=== PATIENT | female | born 1980 | race Caucasian/White ===

== ENCOUNTER → 2018-03-08 17:29 | Outpatient (CLI) | payer OTHER, SELFPAY | PROVIDERS: Visit Provider Podiatrist | DX: L03.031 Cellulitis of right toe (principal); L60.0 Ingrowing nail | CPT/HCPCS: 87070; 87077; 87186; 87205 ==

== ENCOUNTER → 2018-09-02 14:18 | Outpatient (CLI) | payer OTHER, SELFPAY ==
[2018-09-02 11:09] VITALS: BMI 32.7
[2018-09-02 14:21] LABS: Mucous, Urine 0 SEEN /hpf (<or=2+); Red Blood Cells-Urine 0 SEEN /hpf (0-5)
[2018-09-02 14:31] LABS: Color, Urine Yellow (Yellow); Glucose, Dipstick Normal (Normal); Ketone-Dipstick Negative (Negative); Leukocyte Esterase-Dipstick 100 /ul (Negative); Nitrite-Dipstick Negative (Negative); Occult Blood-Urine 10 /ul (Negative); Protein-Dipstick Negative (Negative); Specific Gravity, Urine 1.015 (1.002-1.030); Urine Bilirubin Dipstick Negative (Negative); Urine Clarity Clear (Clear); Urine Urobilinogen Normal (Normal); Urine pH 6.5 (5.0 - 8.0)
[2018-09-02 14:49] LABS: Squamous Epithelial Cells - UA 5-10 SEEN /hpf (5-10); White Blood Cells 10-25 SEEN /hpf (0-5)
[2018-09-02 14:50] LABS: Bacteria 2+ /hpf (None Seen)
== END ==
PROVIDERS: Referring Provider Nurse Practitioner Family; Visit Provider Nurse Practitioner Family
DX: R30.0 Dysuria (principal)
CPT/HCPCS: 81001; 87086; 87088; 87186

== ENCOUNTER → 2022-10-03 | Outpatient (CLI) | payer OTHER, BC, SELFPAY ==
[2022-10-03 10:17] LABS: Mucous, Urine 0 SEEN /hpf (<or=2+); Red Blood Cells-Urine 0 SEEN /hpf (0-5); Squamous Epithelial Cells - UA 0 SEEN /hpf (5-10); White Blood Cells 0 SEEN /hpf (0-5)
[2022-10-03 10:34] LABS: Color, Urine Yellow (Yellow); Glucose, Dipstick Normal (Normal); Ketone-Dipstick Negative (Negative); Leukocyte Esterase-Dipstick Negative /ul (Negative); Nitrite-Dipstick Negative (Negative); Occult Blood-Urine Negative /ul (Negative); Protein-Dipstick Negative (Negative); Specific Gravity, Urine 1.025 (1.002-1.030); Urine Bilirubin Dipstick Negative (Negative); Urine Clarity Cloudy (Clear); Urine Urobilinogen Normal (Normal)
[2022-10-03 10:48] LABS: Amorphous Sediment 2+; Bacteria 1+ /hpf (None Seen); Calcium Oxalate Crystals Ur 1+ /hpf (<or=2+)
== END | disposition home or self-care (01) ==
LOC: LABSPEC 10:05
PROVIDERS: Referring Provider Nurse Practitioner Family; Visit Provider Nurse Practitioner Family
DX: R35.0 Frequency of micturition (principal)
CPT/HCPCS: 81001; 87077; 87086; 87088; 87186

== ENCOUNTER → 2023-11-01 | Outpatient (CLI) | payer OTHER, BC, SELFPAY ==
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
== END | disposition home or self-care (01) ==
LOC: LABSPEC 10:20
PROVIDERS: Referring Provider Physician Assistant; Visit Provider Physician Assistant
DX: N39.0 Urinary tract infection, site not specified (principal)
CPT/HCPCS: 87086

== ENCOUNTER → 2023-11-24 | Outpatient (CLI) | payer OTHER, BC, SELFPAY ==
--- NOTE | 2023-11-24 11:51 | US_ITS ---
STUDY: RENAL ULTRASOUND - COMPLETE REASON FOR EXAM: Female, 42 years old. UTI TECHNIQUE: Ultrasound evaluation of the kidneys was performed with real-time and static cr-scale imaging. COMPARISON: None. FINDINGS: RIGHT KIDNEY: Normal location of the right kidney, which is normal in size. The right kidney measures 10.9 cm x 5.8 cm x 4.7 cm. There is a normal cortex of the right kidney. The renal cortex measures 1.5 cm. There is no right renal mass or cyst. There are no right renal calculi. There is no right hydronephrosis. DISTAL RIGHT URETER: There is non-visualization of the distal right ureter. There is no demonstrated right ureterovesical junction calculus. There is a visualized right ureteral jet. LEFT KIDNEY: Normal location of the left kidney, which is normal in size. The left kidney measures 10.7 cm x 5.2 cm x 6.1 cm. There is a normal cortex of the left kidney. The renal cortex measures 1.6 cm. There is no left renal mass or cyst. There are no left renal calculi. There is no left hydronephrosis. DISTAL LEFT URETER: There is non-visualization of the distal left ureter. There is no demonstrated left ureterovesical junction calculus. There is a visualized left ureteral jet. BLADDER: The distended urinary bladder has a volume of 250 ml. There is a normal wall thickness of the distended urinary bladder. There is no demonstrated mass within the urinary bladder. There are no demonstrated bladder calculi. Incidental note is made of a 2.9 cm by 2.9 cm x 2.6 cm uterine fibroid. US/Kidney and Bladder IMPRESSION: Normal ultrasound of the kidneys and urinary bladder. Incidental finding is made of a 2.9 cm x 2.9 cm x 2.6 cm uterine fibroid. Electronically Signed: Rony Reyes MD at 14:50 EST ,
--- OUTSIDE RECORDS SUMMARY | 2023-11-24 12:12 | XMS RPT_ITS | CCD ---
Author Name Unknown Address [address] [place] [address] Organization [facility] Care Team Providers Care Refrigerating Oiler Name Role Phone Olga Dupree MD Primary Care Provider ANTONIETA SILVESTRE Referring Unavailable OLGA DUPREE Primary Care Unavailable OLGA DUPREE Primary Care Unavailable ANTONIETA SILVESTRE Attending Unavailable Allergies Allergy Classification Reported Allergen(s) Allergy Type Date of Onset Reaction(s) Facility (3 sources) Penicillins; Translations: [PENICILLINS] Propensity to adverse reactions 06-02-2007 [facility] Medications Current Medications Medication Drug Class(es) Dates [...] celaya MD Work Phone: Internal Medicine [facility] [place] Start: 09-13-2023 Encounter for genera l adult medical examination without abnormal findings ANTONIETA SILVESTRE [facility] Start: 09-13-2023 End: 09-14-2023 ambulatory ANTONIETA SILVESTRE Facility:[facility] Start: 08-31-2023 Telephone encounter Olga olvera MD Work Phone: Internal Medicine [place] Plan of Treatment Date Care Activity Detail Author Start: 09-13-2024 Covid-19 Vaccine (#1) Covid-19 Vacci ne (#1) [facility] Immunizations Immunization Date Immunization Notes Care Provider Ciara brian 01-21-1995 measles, mumps and rubella virus vaccine Olga Dupree MD Work Phone: [facility] Work Phone: Payers Date Payer Category Payer Unknown MMO MMO [employer] PPO [id number] 2019-Present [phone] [address] [place] [address] PPO [id number] 2019 Unknown [id number] Private Health Insurance [id number] Private Health Insurance [id number] Social History Date Type Detail Facility Start: 01-08-2018 End: 09-13-2023 Tobacco smoking status NHIS Ex-smoker [facility] End: 10-26-2006 History of tobacco use Current smoker [facility] End: 10-26-2006 History of tobacco use Cigarette Smoker [facility] Start: 01-08-2018 End: 09-13-2023 Tobacco use and exposure Smokeless tobacco non-user [facility] Start: 05-11-2022 End: 09-13-2023 Alcohol intake Current non-drinker of alcohol (finding) [facility] Start: 05-11-2022 End: 09-13-2023 [facility] Start: 05-11-2022 End: 09-13-2023 Tobacco use panel [facility] Adult Depression Scr eening Assessment 0 [facility] Start: 1980 Sex Assigned At Not on file C [facility] Clinical Note 09-27-2023 Note Date & Type Note Facility 09-27-2023 Note Patient Outreach (IN TMMN) BRITTANEY YUAN ([id number]) 1980 F Date Time Provider Department 09/27/23 OLGA DUPREE During your visit today, we recorded the following information about you: Allergies As of Date: 09/27/2023 Noted Allergy Reaction PENICILLINS 06/02/2007 Comments: CHILDHOOD REACTION Date Reviewed: 09/13/2023 Reviewed by: Antonieta Silvestre APRN.WIRELESS MANAGER - Fully Assessed Visit Diagnosis:Encounter for screening mammogram for breast cancer [Z12.31] Order(s):TOR SCREENING [[id number]] Order #: [id number] FUTURE Prescriptions as of 10/02/2023 - sulfamethoxazole-trimethoprim [...] BMI 35-39.9 [E66.9] 09/13/2023 Encounter Status:Closed by [employer] on 10/02/23 [facility] Progress note 09-13-2023 Note Date & Type Note Facility 09-13-2023 Note HNO ID: [id number] Author: Antonieta Silvestre APRN.WIRELESS MANAGER Service: ? Author Type: Nurse Practitioner Type: [...] home environment: Yes Tobacco: no ETOH: rare [employer]IC[employer] History: LMP: Patient's last menstrual period was [...] diet of 1000 mg/day for under 50, 9490-3915 mg/day for 50+ - Depression screening tool [...] COMP METABOLIC PANE (more content not included)... [facility] Note 09-01-2023 Telephone Encounter - Diya Garvin [...] appt. Please advise documented in this encounter [facility] History of Past illness Narrative 03-24-2011 Note Date & Type Note Facility documented as of this encounter (statuses as of 10/02/2023) [facility] Evaluation note Note Date & Type Note Facility documented in this encounter [facility] Reason for referral (narrative) Diagnostic Procedure Only (Routine) - Pending Review Note Date & Type Note Facility Referral ID Status Reason Start Date Expiration Date Visits Requested Visits Authorized [id number] Pending Review Auto-Generat ed Referral 09/27/2023 10/26/2024 1 1 [facility] Summary Purpose Family History No Family History [...] or prosecute any alcohol or drug abuse patient.[facility] the event this information is protected by the Federal Confidentiality of Alcohol and Drug Abuse Patient Records regulations: The Federal rules restrict any use of the information to criminally investigate or prosecute any alcohol or drug abuse patient.[facility] Reason for Visit (unrecogniz ed section and content) Care Teams (unrecognized sec tion and content) Refrigerating Oiler Relationship Specialty Start Date End Date Olga Dupree MD [address] [place] [address] PCP - General Internal Medicine 03/18/16 INFORMATION [...] BE BASED ON THE PRIMARY CLINICAL RECORDS. [facility]. provides no warranty or guarantee of the accuracy or completeness of information in this document.
== END | disposition home or self-care (01) ==
LOC: US 11:51
PROVIDERS: PCP Internal Medicine; Referring Provider Urology; Visit Provider Urology
DX: N39.0 Urinary tract infection, site not specified (principal)
CPT/HCPCS: 76770

== ENCOUNTER 2025-03-11 05:35 | Emergency (ER) | payer OTHER, SELFPAY ==
[2025-03-11 05:37] VITALS: BP 176/78; PULSE 78; RESP 18; TEMP 36.7; O2SAT 98; BMI 36.5
[2025-03-11 05:47] VITALS: BP 144/73; PULSE 74; RESP 18; O2SAT 98
--- NOTE | 2025-03-11 06:05 | EKG12_ITS ---
Test Reason : CP Blood Pressure : */* mmHG Vent. Rate : 83 BPM Atrial Rate : 83 BPM P-R Int : 172 ms QRS Dur : 92 ms QT Int : 376 ms P-R-T Axes : 50 20 32 degrees QTcB Int : 441 ms Normal sinus rhythm Normal ECG Confirmed by WENDY CARDOZA, CLAY ([id number]), primer expeditor and drier CAREY HERNANDEZ ([id number]) on 03/12/2025 8:22:31 AM Referred By: Confirmed By: CLAY NGUYEN MD
--- NOTE | 2025-03-11 06:15 | RAD_ITS ---
PROCEDURE: CHEST PA AND LATERAL 03/11/2025 REASON FOR EXAM: CHEST PAIN TECHNIQUE: CHEST PA AND LATERAL COMPARISON: None. FINDINGS: The lungs are expanded. There is no demonstrated parenchymal abnormality. There is no demonstrated pleural abnormality. Normal heart and pericardium. Normal mediastinum and tyrese. Normal visualized pulmonary arteries. Normal visualized aortic arch and descending thoracic aorta. Normal visualized thoracic spine. Normal visualized ribs, clavicles, and shoulders. There is no demonstrated abnormality of the visualized soft tissue structures of the upper abdomen. RAD/Chest PA and Lateral IMPRESSION: No evidence for acute abnormality. [facility]
[2025-03-11 06:22] LABS: Absolute Lymphocyte Count 2.72 X10^3/uL (0.83-4.51); Absolute Neutrophil Count 4.7 X10^3/uL (2.0-7.7); Basophil# 0.07 X10^3/uL; Basophil% 0.8 % (0-1); Eosinophil# 0.21 X10^3/uL; Eosinophils% 2.5 % (0-5); Hematocrit 29.2 % (37-47); Hemoglobin 8.8 g/dL (12.0-15.0); Lymphocyte # 2.72 X10^3/ul (0.83-4.51); Lymphocyte % 32.2 % (19-41); Mean Corp Hgb Conc 30.1 g/dL (32-36); Mean Corpuscular Hgb 20.6 pg (27.0-32.0); Mean Corpuscular Volume 68.4 fL (81-99); Mean Platelet Vol. 10.3 fl (6.2-12.0); Monocyte# 0.69 X10^3/uL; Monocyte% 8.2 % (0-10); NRBC Flagged by Analyzer 0 % (0-5); Neutrophil # 4.68 X10^3/uL (2.7-7.7); Neutrophil % 55.4 % (47-70); Platelet Count 415 K/mm3 (150-450); RBC Distribution Width CV 17.1 % (11.6-14.6); RBC Distribution Width SD 41.4 fl (35.1-43.9); Red Blood Count 4.27 M/mm3 (4.2-5.4); White Blood Count 8.5 K/mm3 (4.4-11.0)
[2025-03-11 06:42] LABS: Anion Gap 12 (5-15); BUN 17 mg/dL (4-19); BUN/Creat Ratio 20.3 RATIO (10-20); Calcium,Total 8.8 mg/dL (7.6-11.0); Carbon Dioxide 20.7 mmol/L (21.0-32.0); Chloride 104 mmol/L (98-108); Creatinine, Serum 0.84 mg/dL (0.70-1.20); EST Glomerular Filtration Rate 89 (>60); Estimated Creatinine Clearance 87.78 ml/min (50-250); Glucose 105 mg/dL (70-99); Magnesium 1.9 mg/dL (1.5-2.2); Potassium 3.9 mmol/L (3.3-5.1); Sodium Level 137 mmol/L (133-145); Troponin T High Sensitivity 8 ng/L (<=14)
[2025-03-11 06:44] LABS: D-Dimer Quantitative (DVT/PE) 0.27 FEU/ug/m (0.27-0.49)
--- OUTSIDE RECORDS SUMMARY | 2025-03-11 06:52 | XMS RPT_ITS | CCD ---
Author Organization [facility] Care Team Providers Care Installer Helper Name Role Phone Roof COMMERCIAL PAINTER, COMMERCIAL PAINTER-C Vamshi Navarrete Attending Provider Kaylee Gonzales MD Primary Care Provider AMBER Barnes Attending Provider Keo Quach Attending Unavailable Keo Quach Referring Unavailable Keo Quach Attending Unavailable Kaylee Gonzales Primary Care Unavailable Augusta Buitrago Referring Unavailable Augusta Buitrago Attending Unavailable Kaylee Gonzales MD Primary Care Provider Duff CASING BUILDER.GLASS BEVELER, Keturah Unavailable Aramis CASING BUILDER.MEDICAL CODING MANAGER, Antonieta Unavailable [phone] ANTONIETA SELF Referring Unavailable KAYLEE GONZALES Primary Care Unavailable ANTONIETA SELF Attending Unavailable KAYLEE GONZALES Primary Care Unavailable Allergies Allergy Classification Reported Allergen(s) Allergy Type Date of Onset Reaction(s) Facility (4 sources) Penicillins; Translations: [PENICILLINS] Allergy to substance 7 Other [facility] (4 sources) Penicillins Propensity to adverse reactions 7 [facility] (1 source) Penicillins Drug allergy (disorder) 4 [facility] Repository Medications Current Medications Medication Drug Class(es) Dates Sig (Normalized) Sig (Original) ciprofloxacin 500 mg oral tablet (4 sources) Quinolone Antimicrobial Start: 11-01-2023 End: 11-01-2023 take 500 mg by mouth twice daily Ciprofloxacin Hcl Active 500 MG PO TWICE A DAY November 01, 2023 12:00am sulfamethoxazole 800 mg / trimethoprim 160 mg oral tablet (4 sources) Dihydrofolate Reductase Inhibitor Antibacterial, Sulfonamide Antimicrobial Start: 09-27-2023 End: 10-04-2023 take 1 tablet by mouth twice daily sulfamethoxazole-t rimethoprim (BACTRIM DS) 800-160 mg per tablet Take 1 tablet by mouth two times a day for 7 days. 14 tablet 0 09/27/2023 10/04/2023 Active Start: 10-05-2022 End: 10-08-2022 take 1 tablet by mouth twice daily Sulfamethoxazole-Trimethoprim (Bactrim D s) 800-160 mg tablet Discontinued 1 TABLET PO TWICE A DAY 6 October 05, 2022 12:00am October 08, 2022 12:13am Comment on above: Take 1 tablet by tara two times a day for 7 days. Completed/Discontinued Medications Medication Drug Class(es) Dates Sig (Normalized) Sig (Original) azithromycin 250 mg oral tablet (3 sources) Macrolide Antimicrobial Start: 9 End: 9 Azithromycin Discontinued 0 PO .COMPLEX October 09, 2018 12:00am July 06, 2019 7:57am take 500 mg today (day 1), then 250 mg for 4 days (days 2-5) PO benzonatate 100 mg oral capsule (3 sources) Non-narcotic Antitussive Start: 9 End: 9 take 200 mg by mouth three times daily Benzonatate Discontinued 200 MG PO THREE TIMES A DAY October 09, 2018 12:00am July 06, 2019 7:57am methylPREDNISolone 4 mg oral tablet (3 sources) Corticosteroid Start: 9 End: 9 take 1 tablet by mouth once Methylprednisolone (Medrol (Cem)) 4 mg tablets,dose pack Discontinued 4 MG PO per package directions 21 October 09, 2018 12:00am October 14, 2018 12:09am nitrofurantoin, macrocrystals 25 mg / nitrofurantoin, monohydrate 75 mg oral capsule (9 sources) Nitrofuran Antibacterial Start: 3 End: 3 take 1 capsule by mouth every twelve hours at mealtime Nitrofurantoin Monohyd/M-Cryst (Macrobid) 100 mg capsule Discontinued 100 MG PO Q12H 14 October 01, 2022 12:00am October 05, 2022 8:31am must administer with a meal/food Start: 02-19-2020 End: 02-26-2020 take 1 capsule by mouth every twelve hours at mealtime Nitrofurantoin Monohyd/M-Cryst (Macrobid) 100 mg capsule Discontinued 100 MG PO Q12H 14 7 February 18, 2020 11:00pm February 25, 2020 11:02pm must administer with a meal/food Start: 09-02-2018 End: 10-09-2018 take 1 capsule by mouth twice daily at mealtime Nitrofurantoin Monohyd/M-Cryst (Macrobid) 100 mg capsule Discontinued 100 MG PO TWICE A DAY September 02, 2018 12:00am October 09, 2018 1:08pm must administer with a meal/food ofloxacin 3 mg/ml ophthalmic solution (3 sources) Quinolone Antimicrobial Start: 07-06-2019 End: 02-19-2020 Ofloxacin Discontinued 0 OPHTHALMIC .COMPLEX July 05, 2019 11:00pm February 19, 2020 8:20am put 1-2 drps into affected eye(s) every 2-4 h x 2 days, then 1-2 drps 4 times/day days 3-7 ophthalmic (eye) phenazopyridine hydrochloride 100 mg oral tablet (6 sources) Start: 10-01-2022 End: 11-01-2023 take 1 tablet by mouth three times daily Phenazopyridine (Pyridium) 100 mg tablet Discontinued 100 MG PO THREE TIMES A DAY 6 October 01, 2022 1:20pm November 01, 2023 8:51am Start: 09-02-2018 End: 09-03-2018 take 1 tablet by mouth three times daily Phenazopyridine (Pyridium) 100 mg tablet Discontinued 100 MG PO THREE TIMES A DAY 6 September 02, 2018 12:00am September 03, 2018 12:08am Problems Active Problems Problem Classification Problem Date Documented Da te Episodic/Chronic Acute bronchitis (3 sources) Acute bronchitis; Translations: [Acute bronchitis, unspecified] 10-09-2018 Episodic Genitourinary symptoms and ill-defined conditions (1 source) Frequency of micturition; Translations: [Frequency of micturition] Onset: 11-01-2023 Episodic Inflammation; infection of eye (except that caused by tuberculosis or sexually transmitteddisease) (3 sources) Conjunctivitis; Translations: [Unspecified conjunctivitis] 07-06-2019 Episodic Menstrual disorders (1 source) Excessive and frequent menstruation with regular cycle; Translations: [Menorrhagia with regular cycle] Onset: 09-13-2023 Chronic Other and unspecified benign neoplasm (1 source) History of polyp of colon; Translations: [Personal history of colonic polyps] 06-07-2024 Episodic Other nutritional; endocrine; and metabolic disorders (3 sources) Obese class II; Translations: [Obesity, unspecified] Onset: 09-13-2023 09-13-2023 Chronic Urinary tract infections (7 sources) Urinary tract infectious disease; Translations: [Urinary tract infection, site not specified] Onset: 11-29-2023 Episodic Past or Other Problems Problem Classification Problem Date Documented Da te Episodic/Chronic Other connective tissue disease (4 sources) Diastasis recti; Translations: [Separation of muscle (nontraumatic), other site] Onset: 01-08-2018 01-08-2018 Episodic Other and delivery including normal (3 sources) Normal ; Translations: [Encounter for supervision of other normal , unspecified trimester] Onset: 06-02-2007 Resolved: 09-13-2023 06-02-2007 Episodic Other screening for suspected conditions (not mental disorders or infectious disease) (5 sources) Patient encounter status; Translations: [Encounter for screening mammogram for malignant neoplasm of breast] Onset: 09-13-2023 09-27-2023 Episodic Other skin disorders (3 sources) Ingrowing nail; Translations: [Ingrowing nail] Onset: 03-24-2011 Resolved: 09-13-2023 03-24-2011 Episodic Skin and subcutaneous tissue infections (3 sources) Cellulitis and abscess of toe; Translations: [Cellulitis of unspecified toe] Onset: 03-24-2011 Resolved: 09-13-2023 03-24-2011 Episodic Results Test Name Value Interpretation Reference Range Facility [facility] 024 Kidney and Bladder [facility] [address] [place] [address] Kidney and Bladder MR#: [id number] Acct: [id number] Name: STEFAN YUAN Rep #: [id number] : 1980 F 42 From: Rony hernandes MD PCP: Dr. Kaylee Gonzales MD Status: REG CLI Study: Kidney and Bladder Date of Exam: 11/24/23 Exam# [id number] Ordering Dr: Augusta Buitrago MD [id number] STUDY: RENAL ULTRASOUND - COMPLETE REASON FOR EXAM: Female, 42 years old. UTI TECHNIQUE: Ultrasound evaluation of the kidneys was performed with real-time and static cr-scale imaging. COMPARISON: None. FINDINGS: RIGHT KIDNEY: Normal location of the right kidney, which is normal in size. The right kidney measures 10.9 cm x 5.8 cm x 4.7 cm. There is a normal cortex of the right kidney. The renal cortex measures 1.5 cm. There is no right renal mass or cyst. There are no right renal calculi. There is no right hydronephrosis. DISTAL RIGHT URETER: There is non-visualization of the distal right ureter. There is no demonstrated right ureterovesical junction calculus. There is a visualized right ureteral jet. LEFT KIDNEY: Normal location of the left kidney, which is normal in size. The left kidney measures 10.7 cm x 5.2 cm x 6.1 cm. There is a normal cortex of the left kidney. The renal cortex measures 1.6 cm. There is no left renal mass or cyst. There are no left renal calculi. There is no left hydronephrosis. DISTAL LEFT URETER: There is non-visualization of the distal left ureter. There is no demonstrated left ureterovesical junction calculus. There is a visualized left ureteral jet. BLADDER: The distended urinary bladder has a volume of 250 ml. There is a normal wall thickness of the distended urinary bladder. There is no demonstrated mass within the urinary bladder. There are no demonstrated bladder calculi. Incidental note is made of a 2.9 cm by 2.9 cm x 2.6 cm uterine fibroid. US/Kidney and Bladder IMPRESSION: Normal ultrasound of the kidneys and urinary bladder. Incidental finding is made of a 2.9 cm x 2.9 cm x 2.6 cm uterine fibroid. Electronically Signed: Rony Reyes MD at 14:50 EST Reading Location ID and State: [facility] / MD , Service support , CC: Dr. Augusta Buitrago MD; Dr. Kaylee Gonzales MD Weaver Dobby Loom: Signed Normal [facility] Urine Cultureon 11-02-2023 URC Culture exhibits no growth. Normal [facility] Comment on above: Performed By: #### M 100.2200 #### [facility] [address] [place], [address] Culture, urineOrdered By: [facility] j[facility] Quach on 11-01-2023 Bacteria identified Cx Nom (U) Culture exhibits no growth. [facility] - Chemistry and C hemistry - challengeon 11-01-2023 HCG ( test) Ql (U) Negative [facility] Bilirubin Ql (U) Negative [facility] Glucose Ql (U) Negative [facility] Ketones Ql (U) Negative [facility] pH (U) 7.0 [pH] [facility] Specific gravity (U) [Rel density] 1.020 [facility] Urobilinogen (U) [Mass/Vol] Negative [facility] - Hematology and Cell countson 11-01-2023 Hemoglobin Ql (U) Negative [facility] - Specimen inform ationon 11-01-2023 Clarity (U) Clear [facility] Color (U) Dk Yellow [facility] - Urinalysison Nitrite Ql (U) Negative [facility] Protein Ql (U) Trace [facility] No Panel Informationon 11-01 Urine Leukocytes Positive [facility] Urine Non-Hemolyzed Blood [facility] Urgent Care Visit Reporton 0 11-01-2023 Urgent Care Visit Report [facility] [address], [address] [place], [place] [address] OFFICE VISIT Date of Service: 11/01/23 MR#: [id number] Acct: [id number] Name: STEFAN YUAN Rep #: [id number] : 1980 Provider: AMBER Bruno Age/Sex: 42/F Location: [facility] Status: Signed Intake Vital Signs 02/19/20 09:19 11/01/23 08:50 Height 5 ft BP 128/86 H Blood Pressure Location Lt brachial Position Sitting Respiration 16 Pulse 82 Pulse Source NIBP Temp 98.4 F Temp Source Temporal Pulse Oximetry (%) 98 Oxygen Delivery Method room air Intake Visit Reasons: CONCERN FOR UTI Chief Complaint: urinary frequency, pelvic pain Cable Operator Required: No Is patient in pain?: Yes Allergies Penicillins Allergy (Unknown, Verified 11/01/23 08:51) Other Medications ciprofloxacin HCl 500 mg tablet 500 mg PO BID #10 tabs 11/01/23 [Rx Confirmed 11/01/23] Is last menstrual period known: No Post menopausal: No Patient : No Nurse's Note: urianry frequency and pelvic pain x 2 weeks worsening. [facility] Medical History (Updated 11/01/23 @ 08:50 by Alejandra Lira) Frequent UTI Surgical History History of delivery Social History (Updated 02/19/20 @ 09:49 by AMBER Hsieh) Smoking Status: Never smoker alcohol intake: never HPI HPI Chief Complaint: urinary frequency, pelvic pain Details: STEFAN YUAN, is a 42 F who presents to the office today for initial evaluation at the [facility] for approximately 6-7 day history of dysuria and urinary frequency with suprapubic pressure. No complaints of fever, chills, sweats, lightheadedness/dizzi ness, nausea/vomiting, or chest pain/shortness of breath/dyspnea on exertion/back pain. No changes in color/ character of urine or stool; no urethral/ vaginal discharge. Ibuprofen taken to assist. No other associated symptoms and no alleviating/aggravati ng factors. ROS Const Constitutional: No other (As above) Exam Const General: cooperative, healthy appearing and no acute distress Orientation: alert, awake and oriented x3 Chest Chest palpation inspection: normal inspection of the chest Resp Effort Inspection: normal respiratory effort and able to speak in complete sentences Auscultation: Bilateral: Clear to Auscultation Cardio Palpation: normal PMI Rate: regular rate Rhythm: regular rhythm Heart Sounds: S1 normal, S2 normal, no gallops, no murmurs and no rubs Pulses: radial pulses present GI Inspection: normal to inspection Palpation: soft and tender suprapubic (Patient describes upon self-palpation) General: No CVA tenderness Skin General: no rashes or lesions noted Neuro General: patient alert, patient awake and patient oriented x3 Cognition: normal cognition Speech: speech normal Psych Appearance: grossly normal Mental Status: mental status grossly normal Mood: congruent mood Affect: normal affect Speech and Movement: speech and movement normal Attitude: cooperative Diagnoses Urinary tract infection N39.0 Assessment and Plan Assessment and Plan (1) Urinary tract infection: Status: Acute Plan: See POC results; urine sent to lab for UA and C/S. Cipro as prescribed today. Supportive measures as instructed today. Follow-up with PCP in 3 to 5 days should symptoms not improve, sooner should symptoms only worsen or any other concerns develop. Patient states acknowledging understanding all the above Results POC Urine Office , Urine Negative Last Edit by Alejandra Lira on 11/01/23 08:52 POC Urinalysis Dip (Clinic) Office Urine Color Dk Yellow Last Edit by Alejandra Lira on 11/01/23 08:52 Office Urine Clarity Clear Last Edit by Alejandra Lira on 11/01/23 08:52 Office Urine Glucose Negative Last Edit by Alejandra Lira on 11/01/23 08:52 Office Urine Ketones Negative Last Edit by Alejandra Lira on 11/01/23 08:52 Off Ur Spec [place] 1.020 Last Edit by Alejandra Lira on 11/01/23 08:52 Office Urine pH 7.0 Last Edit by Alejandra Lira on 11/01/23 08:52 Office Urine Bilirubin Negative Last Edit by Alejandra Lira on 11/01/23 08:52 Office Urine Urobilinogen Negative Last Edit by Alejandra Lira on 11/01/23 08:52 Office Urine Blood Negative Last Edit by Alejandra Lira on 11/01/23 08:52 Office Urine Blood Hemolyzed NA Last Edit by Alejandra Lira on 11/01/23 08:52 Office Urine Protein Trace Last Edit by Alejandra Lira on 11/01/23 08:52 Office Urine Nitrate Negative Last Edit by Alejandra Lira on 11/01/23 08:52 Off Ur Leukocytes Positive Last Edit by Alejandra Lira on 11/01/23 08:52 Coding Level of Care Code Off vis,est,level 3 Assessment and Plan Assessment and Plan Orders: Orders POC Urinalysis Dip ( (more content not included)... Normal [facility] 09-14-2023 [facility] STEFAN YUAN ([id number]) 1980 F Date Time Provider Department 09/14/23 [facility] During your visit today, we recorded the following information about you: Lavern Dalal LPN 09/14/2023 12:14 PM Signed Pt is asking if her UA results from yest can be looked at today. States she is having urinary frequency AND has had 3 UTIs this year. Please advise. Pt uses [facility] [place] if she needs treated. Keturah David APRN.GLASS BEVELER 09/14/2023 3:54 PM Signed Seen by Antonieta Self yesterday. OK for antibiotic Rowena Meyers LPN 09/14/2023 4:46 PM Signed No answer. Left message that antibiotic was sent to the pharmacy and to call office with any questions or concerns. Allergies As of Date: 09/14/2023 Noted Allergy Reaction PENICILLINS 06/02/2007 Comments: CHILDHOOD REACTION Date Reviewed: 09/13/2023 Reviewed by: Antonieta Self APRN.MEDICAL CODING MANAGER - Fully Assessed Reason for Visit: Abnormal Lab Results [Other] Primary Visit Diagnosis:UTI symptoms [R39.9] Order(s):nitrofuranto in monohydrate and macrocrystal (MACROBID) 100 mg capsuleTake 1 capsule by mouth two times a day with meals for 7 days.Disp: 14 capsuleRfl: 0 Prescriptions as of 09/14/2023 - nitrofurantoin monohydrate and macrocrystal (MACROBID) 100 mg capsule Take 1 capsule by mouth two times a day with meals for 7 days. Problem List As Of Date 09/14/2023 Noted Resolved Supervision of other normal [Z34.80] 06/02/2007 09/13/2023 Cellulitis and abscess of toe, unspecified [L03*03/24/2011 09/13/2023 Ingrowing nail [L60.0] 03/24/2011 09/13/2023 Diastasis recti [M62.08] 01/08/2018 Obesity, Class II, BMI 35-39.9 [E66.9] 09/13/2023 Prescriptions ordered this encounter Disp Refills Start End NITROFURANTOIN MONOHYDRATE AND MACROCR* 14 c* 0 09/14/2023 09/21/2023 Route: ORAL Sig: Take 1 capsule by mouth two times a day with meals for 7 days. Encounter Status:Closed by ROWENA MEYERS on 09/14/23 Normal [facility] CBC W Auto Differential pane l (Bld)on 09-13-2023 Basophils (Bld) [#/Vol] 0.07 10*3/uL Normal <0.11 [facility] Comment on above: Order Comment: Speci men Type: BLOOD SPECIMEN Ordering Facility: [facility] Address: [address] [place] [address] Performed By: #### 5 7021-8 #### [facility] CLIA [id number] [facility] [place] [address] [place] Basophils/100 WBC (Bld) 0.7 % Normal [facility] Comment on above: Order Comment: Speci men Type: BLOOD SPECIMEN Ordering Facility: [facility] Address: [address] [place] [address] Performed By: #### 5 7021-8 #### [facility] CLIA [id number] [address] [place] [address] [place] Differential cell count method Nom (Bld) Auto Normal [facility] Comment on above: Order Comment: Speci men Type: BLOOD SPECIMEN Ordering Facility: [facility] Address: [address] [place] [address] Performed By: #### 5 7021-8 #### [facility] CLIA [id number] [address] [place] [address] [place] Eosinophils (Bld) [#/Vol] 0.08 10*3/uL Normal <0.46 [facility] Comment on above: Order Comment: Speci men Type: BLOOD SPECIMEN Ordering Facility: [facility] Address: [address] [place] [address] Performed By: #### 5 7021-8 #### [facility] CLIA [id number] [address] [place] [address] [place] Eosinophils/100 WBC (Bld) 0.8 % Normal [facility] Comment on above: Order Comment: Speci men Type: BLOOD SPECIMEN Ordering Facility: [facility] Address: [address] [place] [address] Performed By: #### 5 7021-8 #### [facility] CLIA [id number] [address] [place] [address] [place] Erythrocyte distribution width (RBC) [Ratio] 14.6 % Normal 11.5-15.0 [facility] Comment on above: Order Comment: Speci men Type: BLOOD SPECIMEN Ordering Facility: [facility] Address: [address] [place] [address] Performed By: #### 5 7021-8 #### [facility] CLIA [id number] [address] [place] [address] [place] Hematocrit (Bld) [Volume fraction] 37.6 % Normal 36.0-46.0 [facility] Comment on above: Order Comment: Speci men Type: BLOOD SPECIMEN Ordering Facility: [facility] Address: [address] [place] [address] Performed By: #### 5 7021-8 #### [facility] CLIA [id number] [address] [place] [address] [place] Hemoglobin (Bld) [Mass/Vol] 11.6 g/dL Normal 11.5-15.5 [facility] Comment on above: Order Comment: Speci men Type: BLOOD SPECIMEN Ordering Facility: [facility] Address: [address] [place] [address] Performed By: #### 5 7021-8 #### [facility] CLIA [id number] [address] [place] [address] [place] Immature granulocytes (Bld) [#/Vol] 0.04 10*3/uL Normal <0.10 [facility] Comment on above: Order Comment: Speci men Type: BLOOD SPECIMEN Ordering Facility: [facility] Address: [address] [place] [address] Performed By: #### 5 7021-8 #### [facility] CLIA [id number] [address] [place] [address] [place] Immature granulocytes/100 WBC (Bld) 0.4 % Normal [facility] Comment on above: Order Comment: Speci men Type: BLOOD SPECIMEN Ordering Facility: [facility] Address: [address] [place] [address] Performed By: #### 5 7021-8 #### [facility] CLIA [id number] [address] [place] [address] [place] Lymphocytes (Bld) [#/Vol] 2.97 10*3/uL Normal 1.00-4.00 [facility] Comment on above: Order Comment: Speci men Type: BLOOD SPECIMEN Ordering Facility: [facility] Address: [address] [place] [address] Performed By: #### 5 7021-8 #### [facility] CLIA [id number] [address] [place] [address] [place] Lymphocytes/100 WBC (Bld) 29.9 % Normal [facility] Comment on above: Order Comment: Speci men Type: BLOOD SPECIMEN Ordering Facility: [facility] Address: [address] [place] [address] Performed By: #### 5 7021-8 #### [facility] CLIA [id number] [address] [place] [address] [place] MCH (RBC) [Entitic mass] 23.7 pg Low 26.0-34.0 [facility] Comment on above: Order Comment: Speci men Type: BLOOD SPECIMEN Ordering Facility: [facility] Address: [address] [place] [address] Performed By: #### 5 7021-8 #### [facility] CLIA [id number] [facility] [place] [address] [place] MCHC (RBC) [Mass/Vol] 30.9 g/dL Normal 30.5-36.0 [facility] Comment on above: Order Comment: Speci men Type: BLOOD SPECIMEN Ordering Facility: [facility] Address: [address] [place] [address] Performed By: #### 5 7021-8 #### [facility] CLIA [id number] [address] [place] [address] [place] MCV (RBC) [Entitic vol] 76.7 fL Low 80.0-100.0 [facility] Comment on above: Order Comment: Speci men Type: BLOOD SPECIMEN Ordering Facility: [facility] Address: [address] [place] [address] Performed By: #### 5 7021-8 #### [facility] CLIA [id number] [address] [place] [address] [place] Monocytes (Bld) [#/Vol] 0.66 10*3/uL Normal <0.87 [facility] Comment on above: Order Comment: Speci men Type: BLOOD SPECIMEN Ordering Facility: [facility] Address: [address] [place] [address] Performed By: #### 5 7021-8 #### [facility] CLIA [id number] [address] [place] [address] [place] Monocytes/100 WBC (Bld) 6.6 % Normal [facility] Comment on above: Order Comment: Speci men Type: BLOOD SPECIMEN Ordering Facility: [facility] Address: [address] [place] [address] Performed By: #### 5 7021-8 #### [facility] CLIA [id number] [address] [place] [address] [place] Neutrophils (Bld) [#/Vol] 6.12 10*3/uL Normal 1.45-7.50 [facility] Comment on above: Order Comment: Speci men Type: BLOOD SPECIMEN Ordering Facility: [facility] Address: [address] [place] [address] Performed By: #### 5 7021-8 #### [facility] CLIA [id number] [address] [place] [address] [place] Neutrophils/100 WBC (Bld) 61.6 % Normal [facility] Comment on above: Order Comment: Speci men Type: BLOOD SPECIMEN Ordering Facility: [facility] Address: [address] [place] [address] Performed By: #### 5 7021-8 #### [facility] CLIA [id number] [address] [place] [address] [place] Nucleated RBC (Bld) [#/Vol] 10*3/uL Normal <0.01 [facility] Comment on above: Order Comment: Speci men Type: BLOOD SPECIMEN Ordering Facility: [facility] Address: [address] [place] [address] Performed By: #### 5 7021-8 #### [facility] CLIA [id number] [address] [place] [address] [place] Nucleated RBC/100 WBC (Bld) [Ratio] 0.0 /100 WBC Normal [facility] Comment on above: Order Comment: Speci men Type: BLOOD SPECIMEN Ordering Facility: [facility] Address: [address] [place] [address] Performed By: #### 5 7021-8 #### [facility] CLIA [id number] [address] [place] [address] [place] Platelet mean volume (Bld) [Entitic vol] 10.4 fL Normal 9.0-12.7 [facility] Comment on above: Order Comment: Speci men Type: BLOOD SPECIMEN Ordering Facility: [facility] Address: [address] [place] [address] Performed By: #### 5 7021-8 #### [facility] CLIA [id number] [address] [place] [address] [place] Platelets (Bld) [#/Vol] 400 10*3/uL Normal 150-400 [facility] Comment on above: Order Comment: Speci men Type: BLOOD SPECIMEN Ordering Facility: [facility] Address: [address] [place] [address] Performed By: #### 5 7021-8 #### [facility] CLIA [id number] [address] [place] [address] [place] RBC (Bld) [#/Vol] 4.90 10*6/uL Normal 3.90-5.20 [facility] Comment on above: Order Comment: Speci men Type: BLOOD SPECIMEN Ordering Facility: [facility] Address: [address] [place] [address] Performed By: #### 5 7021-8 #### [facility] CLIA [id number] [address] [place] [address] [place] WBC (Bld) [#/Vol] 9.94 10*3/uL Normal 3.70-11.00 [facility] Comment on above: Order Comment: Speci men Type: BLOOD SPECIMEN Ordering Facility: [facility] Address: [address] [place] [address] Performed By: #### 5 7021-8 #### [facility] CLIA [id number] [address] [facility] [id number] [place] [address] [place] CNOVon 09-13-2023 CNOV Office Visit (INTMWS ) STEFAN YUAN ([id number]) 1980 F Date Time Provider Department 09/13/23 9:00 AM ANTONIETA SELF INTMWS During your visit today, we recorded the following information about you: Pulse Blood pressure Weight Height 74/minute 130/80 82.1 kg 1.524 m Last Period 08/18/23 Antonieta Self APRN.MEDICAL CODING MANAGER 09/13/2023 9:47 AM Signed CHIEF COMPLAINT: Patient presents with: Physical HISTORY: Stefan Yuan is a 42 year old female [...] home environment: Yes Tobacco: no ETOH: rare MEDICAL SCRIBE History: LMP: Patient's last menstrual period was [...] diet of 1000 mg/day for under 50, 1135-0344 mg/day for 50+ - Depression screening tool [...] ICD9: 278.00, ICD10: E66.9 3. Menorrhagia with regula (more content not included)... Normal [facility] Comprehensive metabolic 2000 panelon 09-13-2023 Albumin [Mass/Vol] 4.6 g/dL Normal 3.9-4.9 [facility] Comment on above: Order Comment: Speci men Type: BLOOD SPECIMEN Ordering Facility: [facility] Address: [address] [place] [address] Performed By: #### 2 4331-1, 36883-3 #### [facility] CLIA [id number] [address] [place] [address] [place] ALP [Catalytic activity/Vol] 74 U/L Normal 34-123 [facility] Comment on above: Order Comment: Speci men Type: BLOOD SPECIMEN Ordering Facility: [facility] Address: [address] [place] [address] Performed By: #### 2 4331-1, #### [facility] CLIA [id number] [facility] [place] [address] [place] ALT [Catalytic activity/Vol] 13 U/L Normal 7-38 [facility] Comment on above: Order Comment: Speci men Type: BLOOD SPECIMEN Ordering Facility: [facility] Address: [address] [place] [address] Performed By: #### 2 4331-1, 75955-6 #### [facility] CLIA [id number] [address] [place] [address] [place] Anion gap [Moles/Vol] 11 mmol/L Normal 9-18 [facility] Comment on above: Order Comment: Speci men Type: BLOOD SPECIMEN Ordering Facility: [facility] Address: [address] [place] [address] Performed By: #### 2 4331-1, #### [facility] CLIA [id number] [address] [place] [address] [place] AST [Catalytic activity/Vol] 22 U/L Normal 13-35 [facility] Comment on above: Order Comment: Speci men Type: BLOOD SPECIMEN Ordering Facility: [facility] Address: [address] [place] [address] Performed By: #### 2 4331-, #### [facility] CLIA [id number] [address] [place] [address] [place] Bilirubin [Mass/Vol] 1.0 mg/dL Normal 0.2-1.3 [facility] Comment on above: Order Comment: Speci men Type: BLOOD SPECIMEN Ordering Facility: [facility] Address: [address] [place] [address] Performed By: #### 2 4331-1, #### [facility] CLIA [id number] [address] [place] [address] [place] Calcium [Mass/Vol] 9.6 mg/dL Normal 8.5-10.2 [facility] Comment on above: Order Comment: Speci men Type: BLOOD SPECIMEN Ordering Facility: [facility] Address: [address] [place] [address] Performed By: #### 2 4331-1, #### [facility] CLIA [id number] [address] [place] [address] [place] Chloride [Moles/Vol] 102 mmol/L Normal 97-105 [facility] Comment on above: Order Comment: Speci men Type: BLOOD SPECIMEN Ordering Facility: [facility] Address: [address] [place] [address] Performed By: #### 2 4331-1, 02829-8 #### [facility] CLIA [id number] [facility] [place] [address] [place] CO2 [Moles/Vol] 24 mmol/L Normal 22-30 [facility] Comment on above: Order Comment: Speci men Type: BLOOD SPECIMEN Ordering Facility: [facility] Address: [address] [place] [address] Performed By: #### 2 4331-1, 83422-8 #### [facility] CLIA [id number] [address] [place] [address] [place] Creatinine [Mass/Vol] 0.79 mg/dL Normal 0.58-0.96 [facility] Comment on above: Order Comment: Speci men Type: BLOOD SPECIMEN Ordering Facility: [facility] Address: [address] [place] [address] Performed By: #### 2 4331-1, 61934-1 #### [facility] CLIA [id number] [address] [place] [address] [place] Creatinine and Glomerular filtration rate.predicted panel (S/P/Bld) 97 mL/min/1.73m??? Normal >=60 [facility] Comment on above: Order Comment: Speci men Type: BLOOD SPECIMEN Ordering Facility: [facility] Address: [address] [place] [address] Result Comment: Marianna mated Glomerular Filtration Rate (eGFR) is calculated using the 2020 CKD-EPI creatinine equation. This equation utilizes serum creatinine, sex, and age as parameters. The creatinine assay has traceable calibration to isotope dilution-mass spectrometry. Refer to KDIGO guidelines for clinical interpretation. In patients with unstable renal function, e.g. those with acute kidney injury, the eGFR may not accurately reflect actual GFR. Performed By: #### 2 4331-1, 28568-5 #### [facility] CLIA [id number] [address] [facility] [place] [id number] [place] Glucose [Mass/Vol] 88 mg/dL Normal 74-99 [facility] Comment on above: Order Comment: Kacey alejandre Type: BLOOD SPECIMEN Ordering Facility: [facility] Address: [address] [place] [address] Result Comment: The [place] Diabetes Association (ADA) provides guidance for cutoff values for fasting glucose and random glucose. The ADA defines fasting as no caloric intake for at least 8 hours. Fasting plasma glucose results between 100 to 125 mg/dL indicate increased risk for diabetes (prediabetes). Fasting plasma glucose results greater than or equal to 126 mg/dL meet the criteria for diagnosis of diabetes. In the absence of unequivocal hyperglycemia, results should be confirmed by repeat testing. In a patient with classic symptoms of hyperglycemia or hyperglycemic crisis, random plasma glucose results greater than or equal to 200 mg/dL meet the criteria for diagnosis of diabetes. Reference: Standards of Medical Care in Diabetes 2016, [place] Diabetes Association. Diabetes Care. 2016.39(Suppl 1). Performed By: #### 2 4331-1, 56235-4 #### [facility] CLIA [id number] [address] [place] [id number] [place] Potassium [Moles/Vol] 4.2 mmol/L Normal 3.7-5.1 [facility] Comment on above: Order Comment: Kacey alejandre Type: BLOOD SPECIMEN Ordering Facility: [facility] Address: [address] [place] [address] Performed By: #### 2 4331-1, 32541-7 #### [facility] CLIA [id number] [address] [facility] [address] [address] [place] Protein [Mass/Vol] 7.6 g/dL Normal 6.3-8.0 [facility] Comment on above: Order Comment: Speci men Type: BLOOD SPECIMEN Ordering Facility: [facility] Address: [address] [place] [address] Performed By: #### 2 4331-1, 51246-7 #### [facility] CLIA [id number] [address] [place] [address] [place] Sodium [Moles/Vol] 137 mmol/L Normal 136-144 [facility] Comment on above: Order Comment: Speci men Type: BLOOD SPECIMEN Ordering Facility: [facility] Address: [address] [place] [address] Performed By: #### 2 4331-1, 05166-8 #### [facility] CLIA [id number] [address] [place] [address] [place] Urea nitrogen [Mass/Vol] 13 mg/dL Normal 7-21 [facility] Comment on above: Order Comment: Speci men Type: BLOOD SPECIMEN Ordering Facility: [facility] Address: [address] [place] [address] Performed By: #### 2 4331-1, 13842-1 #### [facility] CLIA [id number] [address] [place] [address] [place] Lipid 1996 panelon 3 Cholesterol [Mass/Vol] 197 mg/dL Normal <200 [facility] Comment on above: Order Comment: Speci men Type: BLOOD SPECIMEN Ordering Facility: [facility] Address: [address] [place] [address] Result Comment: <200 mg/dL, Desirable 200-239 mg/dL, Borderline high >239 mg/dL, High Performed By: #### 2 4331-1, 24187-9 #### [facility] CLIA [id number] [address] [place] [address] [place] Cholesterol in HDL [Mass/Vol] 40 mg/dL Normal >39 [facility] Comment on above: Order Comment: Speci men Type: BLOOD SPECIMEN Ordering Facility: [facility] Address: [address] [place] [address] Result Comment: 40-5 9 mg/dL, Acceptable >59 mg/dL, High: Negative risk factor for coronary heart disease <40 mg/dL, Low: Positive risk factor for coronary heart disease Performed By: #### 2 4331-1, #### [facility] CLIA [id number] [address] [facility] [place] [address] [place] Cholesterol in LDL [Mass/Vol] 135 mg/dL High <100 [facility] Comment on above: Order Comment: Speci men Type: BLOOD SPECIMEN Ordering Facility: [facility] Address: [address] [place] [address] Result Comment: <100 mg/dL, Optimal 100-129 mg/dL, Near optimal/above optimal 130-159 mg/dL, Borderline high 160-189 mg/dL, High >189 mg/dL, Very high Secondary prevention optimal LDL Cholesterol levels are recommended to be < 70 mg/dL Performed By: #### 2 4331-1, #### [facility] CLIA [id number] [address] [place] [address] [place] Cholesterol in LDL/Cholesterol in HDL [Mass ratio] 3.38 {ratio} High <2.54 [facility] Comment on above: Order Comment: Galeni men Type: BLOOD SPECIMEN Ordering Facility: [facility] Address: [address] [place] [address] Result Comment: Blayne lazaro: 1. National Cholesterol Education Program ATP III Guideline At-A-Glance Quick Desk Reference: National Heart, Lung, and Blood [place]. National Institutes of Health. 2001: NIH Publication No. 01-3305. 2. An International Atherosclerosis Society position paper: global recommendations for the management of dyslipidemia: executive summary, Atherosclerosis. 2014: 232(2):410-413. Performed By: #### 2 4331-1, #### [facility] CLIA [id number] [address] [facility] [place] [address] [place] Cholesterol in VLDL [Mass/Vol] 22 mg/dL Normal <30 [facility] Comment on above: Order Comment: Speci men Type: BLOOD SPECIMEN Ordering Facility: [facility] Address: [address] [place] [address] Performed By: #### 2 4331-1, #### [facility] CLIA [id number] [address] [place] [id number] [place] Cholesterol non HDL [Mass/Vol] 157 mg/dL High <130 [facility] Comment on above: Order Comment: Speci men Type: BLOOD SPECIMEN Ordering Facility: [facility] Address: [address] [place] [address] Result Comment: <130 mg/dL, Optimal 130-159 mg/dL, Near optimal/above optimal 160-189 mg/dL, Borderline high 190-219 mg/dL, High >219 mg/dL, Very high Secondary prevention optimal non HDL Cholesterol levels are recommended to be <100 mg/dL Performed By: #### 2 433-, #### [facility] CLIA [id number] [address] [place] [address] [place] Cholesterol.total/Cho lesterol in HDL [Mass ratio] 4.93 {ratio} Normal <5.10 [facility] Comment on above: Order Comment: Speci men Type: BLOOD SPECIMEN Ordering Facility: [facility] Address: [address] [place] [address] Performed By: #### 2 4331-, #### [facility] CLIA [id number] [address] [place] [id number] [place] FASTING TIME 13 hrs Normal [facility] Comment on above: Order Comment: Speci men Type: BLOOD SPECIMEN Ordering Facility: [facility] Address: [address] [place] [address] Performed By: #### 2 4331-1, #### [facility] CLIA [id number] [address] [place] [address] [place] Triglyceride [Mass/Vol] 110 mg/dL Normal <150 [facility] Comment on above: Order Comment: Speci men Type: BLOOD SPECIMEN Ordering Facility: [facility] Address: [address] [place] [address] Result Comment: <150 mg/dL, Normal 150-199 mg/dL, Borderline high 200-499 mg/dL, High >499 mg/dL, Very high Performed By: #### 2 4331-1, 67764-5 #### [facility] CLIA [id number] [address] [place] [address] [place] Urinalysis complete panel (U )on 09-13-2023 BACTERIA UL 3361.8 uL High Negative [facility] Comment on above: Order Comment: Speci men Type: URINE SPECIMEN Ordering Facility: [facility] Address: [address] [place] [address] Performed By: #### 2 4356-8 #### [facility] CLIA [id number] [address] [place] [address] [place] Bilirubin Ql (U) Negative Normal Negative [facility] Comment on above: Order Comment: Speci men Type: URINE SPECIMEN Ordering Facility: [facility] Address: [address] [place] [address] Performed By: #### 2 4356-8 #### [facility] CLIA [id number] [address] [place] [address] [place] Clarity (Unsp spec) Clear Normal Clear [facility] Comment on above: Order Comment: Speci men Type: URINE SPECIMEN Ordering Facility: [facility] Address: [address] [place] [address] Performed By: #### 2 4356-8 #### [facility] CLIA [id number] [address] [place] [address] [place] Color (U) Yellow Normal Yellow [facility] Comment on above: Order Comment: Speci men Type: URINE SPECIMEN Ordering Facility: [facility] Address: [address] [place] [address] Performed By: #### 2 4356-8 #### [facility] CLIA [id number] [address] [place] [address] [place] Epithelial cells LM.HPF (Urine sed) [#/Area] Few Normal [facility] Comment on above: Order Comment: Speci men Type: URINE SPECIMEN Ordering Facility: [facility] Address: [address] [place] [address] Performed By: #### 2 4356-8 #### [facility] CLIA [id number] [address] [place] [address] [place] Glucose Test strip (U) [Mass/Vol] Negative Normal Negative [facility] Comment on above: Order Comment: Speci men Type: URINE SPECIMEN Ordering Facility: [facility] Address: [address] [place] [address] Performed By: #### 2 4356-8 #### [facility] CLIA [id number] [address] [place] [address] [place] Hemoglobin Ql (U) Negative Normal Negative [facility] Comment on above: Order Comment: Speci men Type: URINE SPECIMEN Ordering Facility: [facility] Address: [address] [place] [address] Performed By: #### 2 4356-8 #### [facility] CLIA [id number] [address] [place] [address] [place] Hyaline casts (Urine sed) [#/Area] 0 /[LPF] Normal 0 /LPF [facility] Comment on above: Order Comment: Speci men Type: URINE SPECIMEN Ordering Facility: [facility] Address: [address] [place] [address] Performed By: #### 2 4356-8 #### [facility] CLIA [id number] [address] [place] [address] [place] Ketones Ql (U) Negative Normal Negative [facility] Comment on above: Order Comment: Speci men Type: URINE SPECIMEN Ordering Facility: [facility] Address: [address] [place] [address] Performed By: #### 2 4356-8 #### [facility] CLIA [id number] [address] [place] [address] [place] Leukocyte esterase Test strip Ql (U) Negative Normal Negative [facility] Comment on above: Order Comment: Speci men Type: URINE SPECIMEN Ordering Facility: [facility] Address: [address] [place] [address] Performed By: #### 2 4356-8 #### [facility] CLIA [id number] [address] [place] [address] [place] Nitrite Ql (U) Negative Normal Negative [facility] Comment on above: Order Comment: Speci men Type: URINE SPECIMEN Ordering Facility: [facility] Address: [address] [place] [address] Performed By: #### 2 4356-8 #### [facility] CLIA [id number] [address] [place] [address] [place] pH (U) 6.0 [pH] Normal <8.5 [facility] Comment on above: Order Comment: Speci men Type: URINE SPECIMEN Ordering Facility: [facility] Address: [address] [place] [address] Performed By: #### 2 4356-8 #### [facility] CLIA [id number] [address] [place] [address] [place] Protein (U) [Mass/Vol] Negative Normal Negative [facility] Comment on above: Order Comment: Speci men Type: URINE SPECIMEN Ordering Facility: [facility] Address: [address] [place] [address] Performed By: #### 2 4356-8 #### [facility] CLIA [id number] [address] [place] [address] [place] RBC LM.HPF (Urine sed) [#/Area] 0-2 /HPF Normal 0-2 /HPF [facility] Comment on above: Order Comment: Speci men Type: URINE SPECIMEN Ordering Facility: [facility] Address: [address] [place] [address] Performed By: #### 2 4356-8 #### [facility] CLIA [id number] [address] [place] [address] [place] Specific gravity (U) [Rel density] 1.027 Normal 1.005-1.030 [facility] Comment on above: Order Comment: Speci men Type: URINE SPECIMEN Ordering Facility: [facility] Address: [address] [place] [address] Performed By: #### 2 4356-8 #### [facility] CLIA [id number] [address] [place] [address] [place] Urobilinogen Ql (U) 0.2 EU/dL Normal 0.2-1.0 EU/dL [facility] Comment on above: Order Comment: Speci men Type: URINE SPECIMEN Ordering Facility: [facility] Address: [address] [place] [address] Performed By: #### 2 4356-8 #### [facility] CLIA [id number] [address] [place] [address] [place] WBC LM.HPF (Urine sed) [#/Area] 0-5 /HPF Normal 0-5 /HPF [facility] Comment on above: Order Comment: Speci men Type: URINE SPECIMEN Ordering Facility: [facility] Address: [address] [place] [address] Performed By: #### 2 4356-8 #### [facility] CLIA [id number] [address] [place] [address] [place] Amorphous sediment detection in urine sediment by light microscopyon 10-03-2022 Amorphous sediment LM Ql (Urine sed) 2+ [facility] Work [facility]: Basophil percentageon 2022 Basophil percentage 0 SEEN /hpf 0-[address] [facility] Work Phone: Bilirubin Test strip Ql (U)o n 10-03-2022 Bilirubin Ql (U) Negative Negative [facility] Work Phone: Calcium oxalate crystals det ection in urine sediment by light microscopyon 10-03-2022 Calcium oxalate crystals LM Ql (Urine sed) 1+ /hpf [facility] Work Phone: Ketones Test strip Ql (U)on 10-03-2022 Ketones Ql (U) Negative Negative [facility] Work Phone: Mucus LM Ql (Urine sed)on Mucus Ql (Urine sed) 0 SEEN /hpf [facility] Work Phone: Nitrite Test strip Ql (U)on 10-03-2022 Nitrite Ql (U) Negative Negative [facility] Work Phone: Protein Test strip Ql (U)on 10-03-2022 Protein Ql (U) Negative Negative [facility] Work Phone: Squamous epithelial cells de tection in urine sediment by light microscopyon 10-03-2022 Epithelial cells.squamous LM Ql (Urine sed) 0 SEEN /hpf 5-10 [facility] Work Phone: Urine blood detectionon RBC Ql (U) Negative Negative [facility] Work Phone: RBC Ql (U) 0 SEEN /hpf 0-5 [facility] Work Phone: Urine clarityon 10-03-2022 Clarity (U) Cloudy Clear [facility] Work Phone: Urine color determinationon 10-03-2022 Color (U) Yellow Yellow [facility] Work Phone: Urine glucose detectionon Glucose Ql (U) Normal mg/dl Normal [facility] Work Phone: Urine leukocyte esterase det ection by dipstickon 10-03-2022 Leukocyte esterase Test strip Ql (U) Negative Negative [facility] Work Phone: Urine pHon 10-03-2022 pH (U) 6.0 [pH] 5.0 - 8.0 [facility] Work Phone: Urine sediment bacteria coun t by microscopy (number/high power field)on 10-03-2022 Bacteria LM.HPF (Urine sed) [#/Area] 1 /[HPF] None Seen [facility] Work Phone: Urine specific gravity measu rementon 10-03-2022 Specific gravity (U) [Rel density] 1.025 1.002-1.030 [facility] Work Phone: Urobilinogen Auto test strip Ql (U)on 10-03-2022 Urobilinogen Ql (U) Normal mg/dl Normal [facility] Work Phone: Laboratory - Chemistry and C hemistry - challengeon 10-01-2022 Bilirubin Ql (U) Negative [facility] Work Phone: Glucose Ql (U) Negative [facility] Work Phone: Ketones Ql (U) Trace (5) [facility] Work Phone: pH (U) 6.0 [pH] [facility] Work Phone: Specific gravity (U) [Rel density] 1.020 [facility] Work Phone: Urobilinogen (U) [Mass/Vol] Negative [facility] Work Phone: Laboratory - Hematology and Cell countson 10-01-2022 Hemoglobin Ql (U) Negative [facility] Work Phone: Laboratory - Specimen inform ationon 10-01-2022 Clarity (U) Cloudy [facility] Work Phone: Color (U) LINDA [facility] Work Phone: Laboratory - Urinalysison Nitrite Ql (U) Negative [facility] Work Phone: Protein Ql (U) Negative [facility] Work Phone: No Panel Informationon 10-01 Urine Leukocytes Negatve [facility] Work Phone: Urine Non-Hemolyzed Blood Negative [facility] Work Phone: Culture, urine Bacteria identified Cx Nom (U) Klebsiella pneumoniae sp pneum [facility] Work Phone: Vital Signs Date Time Vital Sign Value Performing Clinician Faci lity 11-01-2023 08:50-0500 Body temperature 98.4 [degF] PA Keo Quach PA Work Phone: [facility] 11-01-2023 08:50-0500 Diastolic blood pressure 86 mm[Hg] PA Keo Quach PA Work Phone: [facility] 11-01-2023 08:50-0500 Heart rate 82 /min PA Keo Quach PA Work Phone: [facility] 11-01-2023 08:50-0500 Respiratory rate 16 /min AMBER Quach PA Work Phone: [facility] 11-01-2023 08:50-0500 SaO2% (BldA) [Mass fraction] 98 % PA Keo Quach PA Work Phone: [facility] 11-01-2023 08:50-0500 Systolic blood pressure 128 mm[Hg] AMBER Quach PA Work Phone: [facility] 10-01-2022 13:08-0500 Body temperature 98.5 [degF] COMMERCIAL PAINTER-C Vamshi Norwood COMMERCIAL PAINTER Work Phone: [facility] Work Phone: 10-01-2022 13:08-0500 Diastolic blood pressure 72 mm[Hg] COMMERCIAL PAINTER-Emily Norwood COMMERCIAL PAINTER Work Phone: [facility] Work Phone: 10-01-2022 13:08-0500 Heart rate 78 /min COMMERCIAL PAINTER-Emily Norwood COMMERCIAL PAINTER Work Phone: [facility] Work Phone: 10-01-2022 13:08-0500 Respiratory rate 14 /min COMMERCIAL PAINTER-C Vamshi Norwood COMMERCIAL PAINTER Work Phone: [facility] Work Phone: 10-01-2022 13:08-0500 SaO2% (BldA) [Mass fraction] 99 % COMMERCIAL PAINTER-C Vamshi Norwood COMMERCIAL PAINTER Work Phone: [facility] Work Phone: 10-01-2022 13:08-0500 Systolic blood pressure 128 mm[Hg] COMMERCIAL PAINTER-C Vamshi Norwood COMMERCIAL PAINTER Work Phone: [facility] Work Phone: Encounters Encounter Date Encounter Type Care Provider Facility Start: 09-04-2024 End: 09-09-2024 ambulatory Kaylee Gonzales MD Work Phone: Internal Medicine [place] [address] Start: 06-07-2024 End: 06-10-2024 ambulatory Kaylee Gonzales MD Work Phone: [facility] [place] Start: 06-07-2024 End: 06-10-2024 Patient encounter procedure Kaylee Gonzales MD Work Phone: [facility] [place] Comment on above: Referral for [facility]os copy Start: 11-24-2023 End: 11-24-2023 [facility] Start: 11-24-2023 End: 11-24-2023 Patient encounter procedure AMBER CLARK Work Phone: [facility] Work Phone: Start: 11-01-2023 End: 11-01-2023 ambulatory Keo Quach [facility] Work Phone: Start: 11-01-2023 End: 11-01-2023 Patient encounter procedure AMBER CLARK Work Phone: [facility], Specimen Work Phone: Start: 11-01-2023 End: 11-01-2023 Patient encounter procedure AMBER CLARK Work Phone: [facility] Work Phone: Start: 09-27-2023 ambulatory Kaylee celaya MD Work Phone: Internal Medicine [place] Start: 09-13-2023 Encounter for genera l adult medical examination without abnormal findings ANTONIETA SELF [facility] Start: 09-13-2023 End: 09-13-2023 ambulatory ANTONIETA SELF Facility:[facility] Start: 08-31-2023 Telephone encounter Kaylee olvera MD Work Phone: [facility] [place] Comment on above: Appointment Start: 10-03-2022 End: 10-03-2022 ambulatory COMMERCIAL PAINTER-Emily Norwood COMMERCIAL PAINTER Work Phone: [facility] Work Phone: Start: 10-03-2022 End: 10-03-2022 Patient encounter procedure COMMERCIAL PAINTER-Emily Norwood COMMERCIAL PAINTER Work Phone: [facility] Specimen Start: 10-01-2022 End: 10-01-2022 Patient encounter procedure COMMERCIAL PAINTER-Emily Norwood COMMERCIAL PAINTER Work Phone: [facility] Procedures Date Procedure Procedure Detail Performing Clinician Start: 11-24-2023 US urinary tract PA Darion Quach PA Work Phone: Start: 11-01-2023 Urine culture AMBER CLARK Work Phone: Start: 09-13-2023 Adult depression screening assessment Kaylee Gonzales MD Work Phone: Urine culture COMMERCIAL PAINTER-C Vamshi Norwood COMMERCIAL PAINTER Work Phone: Plan of Treatment Date Care Activity Detail Author Start: 09-13-2024 Anxiety Screening Anxiety Screening [facility] Start: 09-13-2024 Covid-19 Vaccine (#1) Covid-19 Vacci ne (#1) [facility] Comment on above: Postponed from 06/09 (Declined at this time) Start: 09-13-2024 Depression Screening Depression Scre ening [facility] Start: 05-26-2024 Covid-19 Vaccine ( season) Covid-19 Vaccine ( season) [facility] Start: 05-26-2024 Covid-19 Vaccine ( season) Covid-19 Vaccine () [facility] Start: 05-26-2024 Influenza vaccination Influenza Vacc ine (#1) [facility] Start: 03-24-2024 Influenza vaccination Influenza Vacc ine (#1) [facility] Comment on above: Postponed from 05/26 (Declined at this time) Start: 09-25-2023 Depression Assessment Depression Ass essment [facility] Start: 05-26-2023 Influenza vaccination Influenza Vacc ine (#1) [facility] Start: 01-08-2023 HPV Testing HPV Testing [facility] Start: 01-08-2023 Pap Testing Pap Testing [facility] Start: 01-08-2023 Screening for malign ant neoplasm of cervix [facility] Start: 2022 Mammography Mammogram Screening [facility] Start: 2022 Screening for malign ant neoplasm of breast Mammogram Screening [facility] Start: 09-25-2022 Depression Assessment Depression Ass essment [facility] Start: 2001 Hepatitis B Vaccine (1 of 3 - 19+ 3-dose series) Hepatitis B Vaccine (1 of 3 - 19+ 3-dose series) [facility] Start: 2001 Urine microalbumin profile DTaP,Tdap,Td Vaccine (1 - Tdap) [facility] Start: 2000 Anxiety Screening Anxiety Screening [facility] Start: 2000 Depression Screening Depression Scre ening [facility] Start: 2000 Hepatitis C Screening Hepatitis C Sc reening [facility] Start: 06-09-1983 Covid-19 Vaccine (#1) Covid-19 Vacci ne (#1) [facility] Start: 1982 Hepatitis B Vaccine (1 of 3 - 3-dose series) Hepatitis B Vaccine (1 of 3 - 3-dose series) [facility] End: 10-04-2025 DBT Breast - bilateral screening TOR SCREENING W MAKENZIE Radiology Routine Encounter for screening mammogram for breast cancer 1 Occurrences starting 09/04/2024 until 10/04/2025 [facility] Work Phone: Comment on above: 1 Occurrences starti ng 09/04/2024 until 10/04/2025 End: 10-26-2024 TOR SCREENING TOR SCREENING Radiology Routine Encounter for screening mammogram for breast cancer 1 Occurrences starting 09/27/2023 until 10/26/2024 [facility] Work Phone: Comment on above: 1 Occurrences starti ng 09/27/2023 until 10/26/2024 [facility] Immunizations Immunization Date Immunization Notes Care Provider Ciara brian 01-21-1995 measles, mumps and rubella virus vaccine Kaylee Gonzales MD Work Phone: [facility] Work Phone: Payers Date Payer Category Payer Self-pay [id number] 2023 Unknown [id number] 2019 Unknown MMO MMO [employer] PPO [id number] 2019-Present [phone] [address] [place] [address] PPO [id number] 2012 Unknown [id number] Private Health Insurance [id number] Private Health Insurance [id number] Private Health Insurance [facility]LY [facility] [id number] Unknown [id number] Unknown [id number] Unknown [id number] Social History Date Type Detail Facility Start: 10-01-2022 End: 11-01-2023 Tobacco smoking status WAIS Unknown if ever smoked [facility] Start: 1980 Sex Assigned At Female W [facility] Start: 01-08-2018 End: 09-13-2023 Tobacco smoking status NHIS Ex-smoker [facility] Start: 10-26-2004 End: 10-26-2006 History of tobacco use Current smoker [facility] Start: 10-26-2004 End: 10-26-2006 History of tobacco use Cigarette Smoker [facility] Start: 01-08-2018 End: 09-13-2023 Tobacco use and exposure Smokeless tobacco non-user [facility] Start: 05-11-2022 End: 09-13-2023 Alcohol intake Current non-drinker of alcohol (finding) [facility] Start: 05-11-2022 End: 09-13-2023 History of Social function [facility] Start: 05-11-2022 End: 09-13-2023 Tobacco use panel [facility] Adult Depression Screening Assessment 0 [facility] Start: 1980 Sex Assigned At Not on file [facility] Clinical Notes 03-24-2011 to 09-04-2024 Telephone Encounter - Rowena Meyers LPN - 06/10/2024 8:49 AM EDTTelephone Encounter - Rowena Meyers LPN - 06/10/2024 8:49 AM EDT Note Date & Type Note Facility 09-04-2024 Note Patient Outreach (IN TMMN) STEFAN YUAN ([id number]) 1980 F Date Time Provider Department 09/04/24 KAYLEE GONZALES During your visit today, we recorded the following information about you: Allergies As of Date: 09/04/2024 Noted Allergy Reaction PENICILLINS 06/02/2007 Comments: CHILDHOOD REACTION Date Reviewed: 09/13/2023 Reviewed by: Antonieta Self APRN.CNP - Fully Assessed Visit Diagnosis:Encounter for screening mammogram for breast cancer [Z12.31] Order(s):TOR SCREENING W MAKENZIE [[id number]] Order #: [id number] FUTURE Problem List As Of Date 09/04/2024 Noted Resolved Supervision of other normal [Z34.80] 06/02/2007 09/13/2023 Cellulitis and abscess of toe, unspecified [L03*03/24/2011 09/13/2023 Ingrowing nail [L60.0] 03/24/2011 09/13/2023 Diastasis recti [M62.08] 01/08/2018 Obesity, Class II, BMI 35-39.9 [E66.812] 09/13/2023 Encounter Status:Closed by ModuleQ AssemblyUSER on 09/09/24 [facility] 06-10-2024 Telephone encount er Note Consult has been sent to Dr. Santos office as requested. [facility] 06-10-2024 Miscellaneous Notes Formattin g of this note might be different from the original. Consult has been sent to Dr. Santos office as requested. Consult order placed, please fax to Beau's office and let her know once sent. Thanks!! documented in this encounter [facility] 06-07-2024 Telephone encount er Note Consult order placed, please fax to Beau's office and let her know once sent. Thanks!! [facility] 09-27-2023 Note Patient Outreach (IN TMMN) STEFAN YUAN ([id number]) 1980 F Date Time Provider Department 09/27/23 KAYLEE GONZALES During your visit today, we recorded the following information about you: Allergies As of Date: 09/27/2023 Noted Allergy Reaction PENICILLINS 06/02/2007 Comments: CHILDHOOD REACTION Date Reviewed: 09/13/2023 Reviewed by: Antonieta Self APRN.MEDICAL CODING MANAGER - Fully Assessed Visit Diagnosis:Encounter for screening mammogram for breast cancer [Z12.31] Order(s):[facility] SCREENING [[id number]] Order #: [id number] FUTURE Prescriptions as of 10/02/2023 - sulfamethoxazole-trimethoprim [...] BMI 35-39.9 [E66.9] 09/13/2023 Encounter Status:Closed by MINDY BROWN on 10/02/23 [facility] 09-13-2023 Note HNO ID: [id number] Author: Antonieta Self APRN.MEDICAL CODING MANAGER Service: ? Author Type: Nurse Practitioner Type: Progress Notes Filed: 09/13/2023 9:47 AM Note Text: CHIEF COMPLAINT: Patient presents with: Physical HISTORY: Stefan Yuan is a 42 year old female [...] home environment: Yes Tobacco: no ETOH: rare MEDICAL SCRIBE History: LMP: Patient's last menstrual period was 08/18/2023 (approximate). Are periods regular? Yes but noticing some changes Past Medical History: PAST MEDICAL HISTORY Diagnosis Date Gestational hypertension Infectious mononucleosis 1999 PM - PAST MEDICAL HISTORY OF 1985 fractured [...] diet of 1000 mg/day for under 50, 8310-5172 mg/day for 50+ - Depression screening tool [...] COMP METABOLIC PANE (more content not included)... [facility] 09-01-2023 Miscellaneous Notes Formattin g of this [...] appt. Please advise documented in this encounter [facility] 03-24-2011 History of Past i llness Narrative Problem Noted Date Diagnosed Date Resolved Date Cellulitis and abscess of toe, unspecified 03/24/2011 09/13/2023 Ingrowing nail 03/24/2011 09/13/2023 Supervision of other normal 06/02/2007 09/13/2023 documented as of this encounter (statuses as of 10/02/2023) [facility] note* Diagnosis Onset Date Resolution Status Urinary tract infection with hematuria [facility] Work Phone: Evaluation note* Diagnosis Encounter for screening mammogram for breast cancer documented in this encounter [facility] noteNo assessment information [facility] Work Phone: Evaluation note* Diagnosis Colon cancer screening- Primary Special screening for malignant neoplasms, colon History of colon polyps Personal history of colonic polyps documented in this encounter [facility] for referral (narrative)* Diagnostic Procedure Only (Routine) - Pending Review Specialty Diagnoses / Procedures Referred By Shorty eric Referred To Contact [facility] Diagnoses Encounter for screening mammogram for breast cancer Procedures TOR SCREENING SCREENING MAMMOGRAPHY BI 2-VIEW BREAST INC Kaylee Krishnan MD [facility] [place] [address] [facility] [address] [place] [address] Referral ID Status Reason Start Date Expiration Date Visits Requested Visits Authorized [id number] Pending Review Auto-Generat ed Referral 09/27/2023 10/26/2024 1 1 [facility] for referral (narrative)* Diagnostic Procedure Only (Routine) - New Request Specialty Diagnoses / Procedures Referred By Shorty eric Referred To Contact [facility] Diagnoses Encounter for screening mammogram for breast cancer Procedures TOR SCREENING W MAKENZIE SCREENING DIGITAL BREAST TOMOSYNTHESIS BI SCREENING MAMMOGRAPHY BI 2-VIEW BREAST INC Kaylee Krishnan MD [address] [place] [address] [facility] [address] [address] Referral ID Status Reason Start Date Expiration Date Visits Requested Visits Authorized [id number] New Request Auto-Generat ed Referral 10/04/2025 1 1 [facility] Chief Complaint and Reason for Visit Chief Complaint Urinary tract infect ion Reason for Visit Urinary tract infect ion with hematuria Chief Complaint CONCERN FOR UTI Chief Complaint CONCERN FOR UTI UTI Summary Purpose Family History No Family History Records FoundNo Family History Records Found Advance Directives No Advanced Directives Records FoundNo Advanced Directives Records Found Reason for Referral Specialty Diagnoses / Procedures Referred By Shorty eric Referred To Contact Gastroenterology Diagnoses Colon cancer screening History of colon polyps Procedures CONSULT TO GASTROENTEROLOGY OFFICE/OUTPATIENT [facility] 60 MINUTES Antonieta Self APRN.MEDICAL CODING MANAGER [address] [place] [address] Referral ID Status Reason Start Date Expiration Date Visits Requested Visits Authorized [id number] Authorized PCP Requested Referral 06/07/2024 06/07/2025 1 1 Additional Source Comments Goals (unrecognized section and content) Goals may be documented in a n alternate sectionGoals may be documented in an alternate sectionGoals may be documented in an alternate section Source Comments (unrecognize d section and content) In the event this informatio n is protected by the Federal Confidentiality of Alcohol and Drug Abuse Patient Records regulations: The Federal rules restrict any use of the information to criminally investigate or prosecute any alcohol or drug abuse patient.[facility] the event this information is protected by the Federal Confidentiality of Alcohol and Drug Abuse Patient Records regulations: The Federal rules restrict any use of the information to criminally investigate or prosecute any alcohol or drug abuse patient.[facility] Institute[facility] the event this information is protected by the Federal Confidentiality of Alcohol and Drug Abuse Patient Records regulations: The Federal rules restrict any use of the information to criminally investigate or prosecute any alcohol or drug abuse patient.[facility] Institute[facility] the event this information is protected by the Federal Confidentiality of Alcohol and Drug Abuse Patient Records regulations: The Federal rules restrict any use of the information to criminally investigate or prosecute any alcohol or drug abuse patient.[facility] Reason for Visit (unrecogniz ed section and content) Reason Comments Appointment Care Teams (unrecognized sec tion and content) Installer Helper Relationship Specialty Start Date End Date Kaylee Gonzales MD [address] [place] [address] PCP - General Internal Medicine 03/18/16 Installer Helper Relationship Specialty Start Date End Date Kaylee Gonzales MD [address] [place] [address] PCP - General Internal Medicine 03/18/16 Team Status: Inactive Member Role Status Dates AMBER Hsieh Attending Provider Active Team Status: Inactive Member Role Status Dates AMBER Hsieh Attending Provider, Referring Pr dina Active Team Status: Active Member Role Status Dates Dr. Kaylee Gonzales MD Primary Care Provider Active Team Status: Inactive Member Role Status Dates Dr. Augusta Buitrago MD Attending Provider, Referring P christine Active Dr. Kaylee Gonzales MD Primary Care Provider Active Installer Helper Relationship Specialty Start Date End Date Kaylee Gonzales MD [address] [place], [place] [id number] PCP - General Internal Medicine 03/18/16 Installer Helper Relationship Specialty Start Date End Date Kaylee Gonzales MD [address] [place], [place] [id number] PCP - General Internal Medicine 03/18/16 Keturah Duff, CASING BUILDER.GLASS BEVELER [address] [place], [place] [id number] Pilot Supervisor Internal Medicine 09/02/24 Antonieta Self, CASING BUILDER.MEDICAL CODING MANAGER [address] [place], [place] [id number] Pilot Supervisor Internal [facility] 09/02/24 INFORMATION SOURCE (unrecogn ized section and content) DATE CREATED AUTHOR 11/30/2023 [facility] DATE CREATED AUTHOR [facility]/10/2024 [facility] FOR RECORDS PERTAINING TO PATIENTS WHO ARE [...] BE BASED ON THE PRIMARY CLINICAL RECORDS. [employer] provides no warranty or guarantee of the accuracy or completeness of information in this document.
[2025-03-11 07:10] VITALS: BP 165/98; PULSE 64; RESP 19; O2SAT 98
[2025-03-11 08:10] LABS: Troponin T High Sens 2 HR < 6 ng/L (<=14)
--- NOTE | 2025-03-11 08:29 | EX.ED.DYSGE1 ---
HPI History of Present Illness Chief Complaint: Chest Pain Informant: patient Narrative Narrative: Patient is a 44-year-old female with no clinically significant past medical history. She states over the past few weeks she will notice some mid to left-sided chest discomfort mainly at night. She states she does not notice the pain during the day. She reports that she does feel that the symptoms have been worsening recently. She states that there is a family history of cardiac issues but she denies any history of cardiac disease at a young age. She denies any recent travel surgery or history of DVT/PE. She denies any recent sick symptoms. She states that there is left-sided chest pain but otherwise no nausea vomiting diaphoresis or shortness of breath. She reports she is scheduled to go on vacation soon and has reports she is seeking reassurance that this is not cardiac in nature before she travels [facility] Medical History (Updated 03/11/25 @ 08:[address] Elian Molina, DO) Frequent UTI Home Medications ?Medication ?Instructions ?Recorded ?Last Taken ?Type NK 03/11/25 Unknown History Allergy/AdvReac Type Severity Reaction Status Date / Time Penicillins Allergy Unknown Other Verified 03/11/25 05:36 Surgical History History of delivery Social History (Updated 02/19/20 @ 09:49 by Keo CLARK, PA) Smoking Status: Never smoker alcohol intake: never ROS ROS ED Constitutional Constitutional ED: Denies chills or fever(s) Eyes Eyes: Denies change in vision ENT ENT ED: Denies sore throat Cardiovascular Cardiovascular: Reports chest pain; Denies palpitations or racing heartbeat Respiratory/Chest Respiratory/Chest: Denies cough or dyspnea Gastrointestinal Gastrointestinal: Denies abdominal pain, diarrhea, nausea or vomiting Genitourinary Genitourinary ED: Denies dysuria Musculoskeletal Musculoskeletal: Denies back pain Integumentary Denies rash Neurologic Neurologic: Denies headache(s) Hematologic/Lymphatic Hematologic/Lymphatic: Denies easy bleeding or easy bruising EXAM Physical Exam Const Vital Signs: 03/11/25 05:37 03/11/25 05:39 03/11/25 05:47 Temperature 98.0 F Temperature Source Oral Pulse Rate 78 74 Respiratory Rate 18 18 Respiratory Effort Normal Non-Labored Respiratory Pattern Normal Blood Pressure 176/78 H 144/73 H Blood Pressure Mean 110 96 Pulse Ox 98 98 Oxygen Delivery Method Room Air Room Air 03/11/25 07:10 Temperature Temperature Source Pulse Rate 64 Respiratory Rate 19 H Respiratory Effort Respiratory Pattern Blood Pressure 165/98 H Blood Pressure Mean 120 Pulse Ox 98 Oxygen Delivery Method Room Air Positive well nourished and well developed General Appearance ED: well developed; Negative for pallor HEENT HEENT Narrative: Normocephalic atraumatic Eyes PERRL and EOMs intact bilaterally General Eye ED: Negative for scleral icterus Neck supple and no JVD Neck Narrative: No nuchal rigidity or meningeal signs Chest Wall Chest Narrative: There is reproducible left midsternal/anterior chest wall pain with palpation rib regions 4-6 without bony deformity or crepitance. Resp normal respiratory effort and clear to auscultation bilaterally Cardio regular rate and regular rhythm Rate: other Other Details: Heart is regular rate and rhythm without murmurs rubs or gallop Radial and carotid pulses are equal and symmetric GI normal to inspection, nondistended, normoactive bowel sounds, non-tender, non-distended and no masses Auscultation: normoactive bowel sounds Palpation: soft Extremity normal to inspection Extremity Narrative: No asymmetric edema no pitting edema negative Homans' sign bilaterally Neuro oriented x3, CN's II-XII intact bilaterally and no sensory deficits noted Sensorium / Orientation: alert Motor Exam: strength 5/5 throughout Psych mental status grossly normal Skin no rashes or lesions noted and no wounds General Skin Exam: Negative for jaundice or pallor MDM MDM MDM Narrative Medical decision making narrative: Patient presented to the ER [facility] with stable vitals. She reports multiple weeks of chest discomfort but this mainly seems to worsen only at night. She denies any recent travel surgery or history of DVT/PE and states she has been no recent trauma or excessive activity. However in order to ensure that this is not atypical presentation for acute coronary syndrome cardiac dysrhythmia or DVT/dissection I did elect to perform basic laboratory studies with chest x-ray and EKG. EKG revealed sinus rhythm without ischemic changes or dysrhythmia changes. Troponin initially was 8 and down trended to less than 6 going against ACS. D-dimer is normal indicating no PE or dissection. Chest x-ray reveals no acute lung pathology. Patient did report resolution of her chest discomfort while in the ER and her blood pressure stabilized as well. Therefore at this time as patient is low risk for acute coronary syndrome and overall workup is negative for any type of cardiac issue there is no need for further evaluation in the ER and she is otherwise safe for discharge. History & Record Review Discussion w/independent historian: Patient Lab Data Attestation: I reviewed the patient's lab results. Labs: Laboratory Results - last 24 hr 03/11/25 03/11/25 05:46 07:40 WBC 8.5 RBC 4.27 Hgb 8.8 L Hct 29.2 L MCV 68.4 L MCH 20.6 L MCHC 30.1 L RDW Std Deviation 41.4 RDW Coeff of Sammy 17.1 H Plt Count 415 MPV 10.3 Immature Gran % (Auto) 0.900 Neut % (Auto) 55.4 Lymph % (Auto) 32.2 [place] % (Auto) 8.2 Eos % (Auto) 2.5 Baso % (Auto) 0.8 Absolute Neuts (auto) 4.7 Absolute Lymphs (auto) 2.72 Nucleated RBC % 0 D-Dimer Quant (PE/DVT) 0.27 Sodium 137 Potassium 3.9 Chloride 104 Carbon Dioxide 20.7 L Anion Gap 12 BUN 17 Creatinine 0.84 Estim Creat Clear Calc 87.78 Est GFR (MDRD) Non-Af 89 BUN/Creatinine Ratio 20.3 H Glucose 105 H Calcium 8.8 Magnesium 1.9 Troponin T High Sens 8 Troponin T Hi Sens 2 Hr < 6 Radiography Diagnostic Testing: Clinical Impression(s) from Imaging Studies Chest X-Ray 03/11/25 06:15 IMPRESSION: No evidence for acute abnormality. Reading Location: [place] [id number] Chest x-ray as interpreted by the emergency medicine physician reveals no acute infiltrate pneumothorax or pleural effusion Discharge Plan Triage Chief Complaint: Chest Pain ED Provider: Elian Molina Dx/Rx/DC Orders Clinical Impression: Nonspecific chest pain Instructions: ED Chest Pain, Uncertain Cause Prescriptions: No Action NK Primary Care Provider: Olga Gonzales Referrals: Olga Gonzales MD [Primary Care Provider] - Activity Restrictions/Additional Instructions: Your workup today showed no sign of cardiac damage or issue. This indicates your recurrent symptoms are most likely from a other source. Follow-up with your family doctor to discuss further testing and return to the ER should you have any further concerns Print Language: Georgian Disposition Disposition: Home, Self Care Discharge Date/Time: 03/11/25 08:37
[2025-03-11 08:31] VITALS: BP 147/83; PULSE 66; RESP 18; TEMP 36.2; O2SAT 97
== END 2025-03-11 08:37 | disposition home or self-care (01) ==
PROVIDERS: Emergency Provider Emergency Medicine; PCP Internal Medicine; Visit Provider Emergency Medicine
DX: R07.9 Chest pain, unspecified (principal)
CPT/HCPCS: 71046; 80048; 83735; 84484; 85025; 85379; 93005; 99283; A4216